=== PATIENT | female | born 1990 | race Caucasian/White ===

== ENCOUNTER 2016-12-19 09:07 | Observation (INO) | payer OTHER ==
[2016-12-18 13:52] VITALS: BMI 23.8
[2016-12-19] VITALS (28 sets, daily range): BP systolic 93–134; BP diastolic 46–65; PULSE 68–96; RESP 8–29; Ht 165.1 cm; Wt 67.0 kg
[~2016-12-19] VITALS: Ht 165.1 cm; Wt 67.0 kg
[~2016-12-19 09:07] MED LIST: PREN-39 PO
[2016-12-19] MEDS ORDERED: CEFAZOLIN 2 GM/50 ML (PMX) 50 ML IVPB ONE (09:30)
[2016-12-19] MEDS ORDERED: ACETAMINOPHEN 1000MG/100ML IV 100 ML ONE (10:51)
[2016-12-19] MEDS ORDERED: BUPIVACAINE 0.25% (MPF) 10 ML 10 ML VIAL ONE (10:52)
[2016-12-19] MEDS ORDERED: SUCCINYLCHOLINE CHLORIDE 100 MG/5 ML SYG IV ONE (10:54)
[2016-12-19] MEDS ORDERED: ROCURONIUM 50 MG INJ ONE (10:54)
[2016-12-19] MEDS ORDERED: PROPOFOL 60 ML ONE (10:54)
[2016-12-19] MEDS ORDERED: LIDOCAINE 2% (SDV) 5 ML INJ ONE (10:54)
[2016-12-19] MEDS ORDERED: MIDAZOLAM 1 MG/ML 2 ML INJ ONE (10:55)
[2016-12-19] MEDS ORDERED: FENTAnyl 50 MCG/ML VIAL ONE ×2 (10:58→11:25)
[2016-12-19] MEDS ORDERED: CEFAZOLIN 1 GM INJ ONE (11:05)
[2016-12-19] MEDS ORDERED: ONDANSETRON 4 MG INJ ONE (11:10)
[2016-12-19] MEDS ORDERED: DEXAMETHASONE 4 MG/ML 1 ML INJ ONE (11:10)
[2016-12-19] MEDS ORDERED: NEOSTIGMINE 3 MG/3 ML SYRINGE ONE (11:37)
[2016-12-19] MEDS ORDERED: GLYCOPYRROLATE 0.4 MG INJ ONE (11:37)
[2016-12-19] MEDS ORDERED: PROPOFOL 20 ML ONE (11:39)
--- NOTE | 2016-12-19 11:44 | OPR ---
Date/Time of Note Date/Time of Note DATE: 12/19/16 TIME: 11:43 Operative Report Procedure Date: December 19, 2016 Preoperative Diagnosis symptomatic gallstones Postoperative Diagnosis same Operation Performed lap salomón therapeutic injection subcutaneous marcaine Surgeon: Faby CISNEROS Anesthesia: general Specimens eduardabalFaby Gomez December 19, 2016 11:44
--- NOTE | 2016-12-19 11:57 | OPR ---
DATE OF OPERATION: 12/19/2016 INDICATION: This is a 26-year-old female with symptomatic gallstones. Risks, alternatives, benefit s, and personnel were discussed with the patient. The patient expressed her understanding and conse nts to the operation. PREOPERATIVE DIAGNOSIS: Symptomatic gallstones. POSTOPERATIVE DIAGNOSIS: Symptomatic gallstones. OPERATIONS: 1. Laparoscopic cholecystectomy. 2. Therapeutic injection of subcutaneous Marcaine, CPT code 10491. SURGEON: Stephanie Yang MD SPECIMENS: Gallbladder. COMPLICATIONS: None. ANESTHESIA: General. PROCEDURE: The patient was taken to the OR and prepped and draped in the usual sterile fashion. Pan rgical time out was performed. IV antibiotics were given. Infraumbilical incision was made transve rsely with a 15 blade. Dissection cautery was carried down to the fascia which was divided with maciel Mahan scissors. An 0 Vicryl U-stitch was placed into the fascia. Balloon Rayo trocar was intr oduced. Pneumoperitoneum was established. Midepigastric 12 mm optical trocar and right upper quadr ant and right upper flank 5 mm optical trocars are placed under direct visualization. Upon initial inspection, there were some adhesions to the gallbladder which were taken down bluntly. The cystic duct was identified. The critical view was established. The cystic duct is divided using a 35 mm E chelon vascular load stapler. Additional clips were placed in the staple line for reinforcement. T he cystic artery was divided using another fire of the 35 mm Lengby vascular load stapler. Clips w ere placed to reinforcement. The gallbladder was taken off the gallbladder bed. There was good hem ostasis. Gallbladder is retrieved using an EndoCatch bag. Ports were removed under direct visualiz ation, 0 Vicryl U-stitch was tied down. Skin was closed using skin brock. Local anesthesia was i njected. Dry dressings were applied. Dictated By: STEPHANIE RIZVI/MAYA Conf#: [id number] DID#: [id number]
[2016-12-19] MEDS ORDERED: HYDROCODONE/APAP (5/325) TAB PO ONE (12:00)
[2016-12-19] MEDS ORDERED: ALBUTEROL 0.5% (NEB) 2.5 MG/0.5 ML AMP ONE (12:14)
[2016-12-19] MEDS ORDERED: ALBUTEROL 0.083% (NEB) 2.5 MG/3 ML AMP HHN STA (12:14)
[2016-12-19] MEDS: SOD CHLORIDE 0.9% 1,000 ML IV SCH ×2 (12:20→22:50)
[2016-12-19] MEDS ORDERED: EPHEDrine SULFATE 50 MG/5 ML SYG IV PRN (12:30)
[2016-12-19] MEDS ORDERED: hydrALAzine 20 MG INJ IV PRN (12:30)
[2016-12-19] MEDS ORDERED: FENTAnyl 50 MCG/ML VIAL IV PRN ×2 (12:30)
[2016-12-19] MEDS ORDERED: LABETALOL HCL 20MG INJ IV PRN (12:30)
[2016-12-19] MEDS ORDERED: ALBUTEROL 0.083% (NEB) 2.5 MG/3 ML AMP HHN ONE (12:30)
[2016-12-19] MEDS ORDERED: DIPHENHYDRAMINE 50 MG INJ IV PRN (12:30)
[2016-12-19] MEDS ORDERED: ONDANSETRON 4 MG INJ IV PRN ×2 (12:30→15:00)
[2016-12-19] MEDS: FENTAnyl 50 MCG/ML VIAL IV PRN ×4 (12:32→15:11)
[2016-12-19] MEDS: MEPERIDINE 25 MG INJ IV PRN ×2 (13:27→15:11)
[2016-12-19] MEDS: morphine 2 MG INJ IV PRN ×2 (14:56→20:24)
[2016-12-19] MEDS ORDERED: ACETAMINOPHEN 325 MG TAB PO PRN (15:00)
[2016-12-19] MEDS: HYDROCODONE/APAP (5/325) TAB PO PRN ×2 (17:21→20:41)
--- NOTE | 2016-12-19 18:02 | HP ---
DATE OF ADMISSION: 12/19/2016 CHIEF COMPLAINT: Recurrent upper quadrant pain. HISTORY OF PRESENT ILLNESS: The patient is a 26-year-old female with a history of symptomatic galls tones, was seen by Dr. Waters as an outpatient and was brought in to the hospital today for laparosco pic cholecystectomy. The patient denied any previous history of recent cholecystitis. No recent ch est pain or shortness of breath. No history of fever or chills. No history of dysuria or hematuria . No history of leg edema. No recent hospitalization. The patient did have significant postoperat raysa pain for which she has been receiving Weldon and morphine. The patient is being admitted for fur ther evaluation and management. PAST SURGICAL HISTORY: None. ALLERGIES: NONE. SOCIAL HISTORY: No history of smoking. Occasional social alcohol use. FAMILY HISTORY: Noncontributory. MEDICATIONS PRIOR TO ADMISSION: None. PHYSICAL EXAMINATION: GENERAL: The patient is conscious, awake, alert. VITAL SIGNS: Temperature 98, pulse 72, blood pressure 105/54, O2 saturation 100% on room air. HEENT: No eye discharge or redness. Extraocular movement intact. Oropharynx clear. NECK: Supple. No mass, no thyromegaly. CHEST: Fairly clear. CARDIOVASCULAR: Normal. No murmur. ABDOMEN: The patient is status post laparoscopic cholecystectomy. EXTREMITIES: No leg edema. Pedal pulses palpable. SKIN: Without acute rash. NEUROLOGIC: The patient is awake, alert with no gross focal deficit. LABORATORY DATA: Urine test negative. Sodium 139, potassium 4.6, BUN 11, creatinine 0.7, glucose 80. Liver enzymes normal. Coagulation profile normal. WBC 6.8, hemoglobin 12.8, platelet s 286. IMPRESSION: Symptomatic gallstones, status post laparoscopic cholecystectomy. PLAN: The patient admitted on medical floor. The patient will be started on clear liquid diet, whi ch will be advanced as tolerated. The patient will be given IV fluids. For pain, the patient will be given Tylenol, Weldon and IV morphine depending on severity of the pain. We will use SCDs for DVT prophylaxis. If patient continues to do well, she will be discharged home tomorrow. Dictated By: HOLLEY CAMPBELL/MAYA Conf#: [id number] DID#: [id number]
[2016-12-20 07:57] VITALS: BP 96/54; RESP 22
[2016-12-20] MEDS: HYDROCODONE/APAP (5/325) TAB PO PRN (08:07)
--- NOTE | 2016-12-20 09:24 | PN ---
Date/Time of Note Date/Time of Note DATE: 12/20/16 TIME: 09:23 Assessment/Plan VTE Prophylaxis VTE Prophylaxis Intervention: SCD's Lines/Catheters IV Catheter Type (from Nrsg): Peripheral IV Assessment/Plan Chief Complaint/Hosp Course s/p lap salomón Problems: Assessment/Plan ok to dc today Subjective 24 Hr Interval Summary Free Text/Dictation had anxiety after surgery yesterday, now doing well Exam/Review of Systems Vital Signs Vitals Vital Signs Date Time Temp Pulse Resp B/P Pulse Ox O2 Delivery O2 Flow Rate FiO2 12/20/16 07:57 98.5 22 96/54 98 12/19/16 23:43 67 12/19/16 18:15 Room Air Intake and Output 12/19/16 12/19/16 12/20/16 15:00 23:00 07:00 Intake Total 1700 ml 870 ml 970 ml Output Total 10 ml 350 ml 400 ml Balance 1690 ml 520 ml 570 ml Exam c/d/i Medications Medications Current Medications Morphine Sulfate (morphine) 2 mg Q4H PRN IV SEVERE PAIN LEVEL 7-10 Last administered on 12/19/16 20:24; Admin Dose 2 MG; Start 12/19/16 at 15:00 Acetaminophen/ Hydrocodone Bitart ([place] (5/325)) 1 tab Q4H PRN PO PAIN Last administered on 12/20/16 08:07; Admin Dose 1 TAB; Start 12/19/16 at 15:00 Acetaminophen (Tylenol Tab) 650 mg Q4H PRN PO PAIN AND OR ELEVATED TEMP; Start 12/19/16 at 15:00 Ondansetron HCl (Zofran Inj) 4 mg Q6H PRN IV NAUSEA AND/OR VOMITING; Start 07/26 at 15:00 Faby CISNEROS December 20, 2016 09:23
--- NOTE | 2016-12-20 11:30 | DS ---
Date/Time of Note Date/Time of Note DATE: 12/20/16 TIME: 11:28 Discharge Summary Admission/Discharge Info Admit Date/Time December 19, 2016 at 13:26 Discharge Date/Time 12/20/16 Final Diagnosis 1) cholecystitis Consults surgery Procedures laparoscopic cholecystectomy Hospital Course Patient comes in with abdominal pain related to cholecystitis. Patient underwent laparoscopic cholecystectomy. She tolerated the procedure fine. Patient was deemed to be stable for discharge per surgery and so was sent home. - s/p lap salomón Home Meds Reported Medications Vits W-Ca,Fe,Fa(<1MG) ( Vitamins) 1 Tab Tablet, 1 TAB PO DAILY , TAB 02/26/16 [None] No Conflict Check 06/28/13 ALLY JENSEN December 20, 2016 11:30
== END 2016-12-20 13:01 | disposition home or self-care (01) ==
LOC: SDS 09:07 → MS1 13:26 → SDS 13:26 → MS1 14:04
PROVIDERS: ADMIT Surgery; ATTEND Surgery
DX: K80.10 Calculus of gallbladder with chronic cholecystitis without obstruction (principal)
CPT/HCPCS: 47562; 88304; 96374; 96376; J0131; J0330; J0690; J1100; J2250; J2270; J2405; J2710; J3010; J7030; Z7500; Z7512; Z7610; G0378; J7999

== ENCOUNTER 2019-01-21 20:13 | Outpatient (CLI) | payer BC ==
[~2019-01-21] VITALS: Ht 165.1 cm; Wt 81.0 kg
[2019-01-21 20:52] VITALS: Ht 165.1 cm; Wt 81.0 kg
[2019-01-21 20:53] VITALS: BP 119/56; PULSE 78; RESP 18
--- NOTE | 2019-01-21 21:56 | PN ---
Triage Information Date/Time Reason for visit: Abd/pelvic pain Weeks of Gestation 28-year-old 4 para 3 at 36 weeks and 2 days of gestation with estimated date of delivery February 17, 2019 Patient presents with chief complaint of abdominal pain and pressure Patient reports positive movement, denies vaginal bleeding and leaking fluid, denies uterine contractions /Para 4 para 3 Diabetes: none Hypertention: none Objective Vital Signs Date Temp Pulse Resp B/P (MAP) Pulse Ox O2 O2 Flow FiO2 Time Delivery Rate 01/21/19 97.5 78 18 119/56 Room Air 20:53 (77) Heart Rate: 140's Heart Rate Comments heart rate tracing category 1 Contractions: None Exam Cervix closed per nurse Results/Medications Imaging Results PROCEDURE: Biophysical profile. CLINICAL INDICATION: Pelvic pain. TECHNIQUE: Multiple sonographic images of the pelvis were obtained with transabdominal technique. COMPARISON: No prior studies are available for comparison. FINDINGS: There is a single living intrauterine gestation with the fetus in a vertex position. The placenta is anterior in location, grade 1 to 2. heart tones of 148 beats per minute are identified. There is normal amniotic fluid volume with an EFFIE of 14.6 cm. breathing movements = 2 Gross body movements = 2 tone = 2 Qualitative AFV = 2 IMPRESSION: Biophysical profile 8 out of 8. .Geovanni Abbott MD, MD Date Time Electronically viewed and signed by .Geovanni Abbott MD, on 01/21/2019 22:07 .T/ CC: SAMRA MENDEZ MD [phone] Disposition: Discharge Assessment/Plan kick count instructions were given Labor precautions were given Patient instructed to follow-up with [facility] in 1 to 2 days SAMRA MENDEZ MD Jan 21, 2019 21:56
--- NOTE | 2019-01-22 03:00 | TRIAGE ---
OB Triage Datetime Report Generated by CPN: 01/22/2019 02:59 Datetime: 01/21/2019 23:15 Stage of : OB Triage Labor Evaluation Frequency: x1 Monitor Mode: External Duration (sec)2399: 40 Quality: Mild Pattern: Normal: <= 5 Contractions in 10 Minutes Resting Tone [place]: Relaxed Heart Rate FHR Baseline Rate: 130 Monitor Mode: External US FHR Baseline Changes: No Baseline Change Variability: Moderate 6-25 bpm Accelerations: 15X15 Decelerations: None Category: Category I Datetime: 01/21/2019 23:00 Stage of : OB Triage Labor Evaluation Frequency: Occasional Monitor Mode: External Duration (sec)2399: 40-60 Quality: Mild Pattern: Normal: <= 5 Contractions in 10 Minutes Resting Tone [place]: Relaxed Heart Rate FHR Baseline Rate: 130 Monitor Mode: External US FHR Baseline Changes: No Baseline Change Variability: Moderate 6-25 bpm Accelerations: 15X15 Decelerations: None Category: Category I Datetime: 01/21/2019 22:00 Stage of : OB Triage Labor Evaluation Frequency: Occasional Monitor Mode: External Duration (sec)2399: 40-50 Quality: Mild Pattern: Normal: <= 5 Contractions in 10 Minutes Resting Tone [place]: Relaxed Heart Rate FHR Baseline Rate: 130 Monitor Mode: External US FHR Baseline Changes: No Baseline Change Variability: Moderate 6-25 bpm Accelerations: 15X15 Decelerations: None Category: Category I Datetime: 01/21/2019 21:00 Stage of : OB Triage Labor Evaluation Frequency: x1 Monitor Mode: External Duration (sec)2399: 50 Quality: Mild Pattern: Normal: <= 5 Contractions in 10 Minutes Resting Tone [place]: Relaxed Heart Rate FHR Baseline Rate: 130 Monitor Mode: External US Variability: Moderate 6-25 bpm Accelerations: 15X15 Decelerations: None Category: Category I Datetime: 01/21/2019 20:34 Vaginal Exam Dilatation (cms): 0.0 Effacement (%): 50 Station: -3 Exam By: KELSY Cortez Membrane Status: Intact Vaginal Bleeding: None Cervix, Consistency: Moderate Cervix, Position: Posterior Datetime: 01/21/2019 20:32 Assessment Type: Triage Maternal Assessment Level of Consciousness: Keenly Alert, Responsive DTR's/Clonus: DTRs 2+; No Clonus Headache: Denies Blurred Vision: No Respiratory Effort: Unlabored; Regular Rhythm; Equal Expansion Breath Sounds, Left: Clear and Equal Breath Sounds, Right: Clear and Equal Nausea/Vomiting: Denies RUQ Epigastric Pain: Denies Lower Extremities Edema: Bilateral Lower Extremities Degree: 2+ Upper Extremities Edema: None (Annotations: Tightness in hands) Degree: None Facial Edema: None Fall Risk Assessment History of Falling: (0) No Secondary Diagnosis: (0) No Ambulatory Aid: (0) Bedrest/Nurse Assist IV Therapy: (0) No Gait: (0) Normal/Bedrest/Immobile Mental Status: (0) Oriented to Own Ability Fall Score: 0 Fall Risk Score Definition: No Risk: No action required Datetime: 01/21/2019 20:30 Time of Arrival: 01/21/2019 20:01 EGA: 36.1 Arrived By: Ambulatory Arrived From: Home Chief Complaint: Lower abdominal cramping _ pressure Movement: Present Contractions: Regular Time Contractions Began: 01/21/2019 17:00 Contractions: Pt reports pain x2 days Rupture of Membranes: Denies Vaginal Bleeding: None Vaginal Discharge: Denies Abdominal Trauma: Not Applicable Patient Complaints: Contractions; Cramping; Back Pain Additional Patient Complaints: Pt is a surrogate (Annotations: Data stored by CPN on behalf of user ) Time Provider Notified: 01/21/2019 20:20 Provider Notified: Initial Plan: NST/BPP/VE Datetime: 01/21/2019 20:25 Monitor Mode: External Contraction Comments: [place] applied Heart Rate FHR Baseline Rate: 135 Monitor Mode: External US Comments: EFM applied Datetime: 01/21/2019 20:23 Stage of : OB Triage Temperature Route: Oral Pain Assessment Pain Scale: 8 Pain Presence: Intermittent Pain Type: Cramping; Pressure (Annotations: Abd cramping intermittent. Pelvic pressure constant.) Pain Location: Abdomen Pain Relief Measures: Comfort Measures Datetime: 01/21/2019 20:20 Stage of : OB Triage
== END 2019-01-21 23:23 | disposition home or self-care (01) ==
LOC: OBT 20:13 → L-D 20:15 → OBT 23:23
PROVIDERS: ATTEND Specialist
DX: O26.893 Other specified pregnancy related conditions, third trimester (principal); R10.2 Pelvic and perineal pain; Z3A.36 36 weeks gestation of pregnancy
CPT/HCPCS: 76818; G0463

== ENCOUNTER 2019-02-17 18:22 | Inpatient (IN) | payer BC ==
[~2019-02-17] VITALS: Ht 165.1 cm; Wt 82.1 kg
[2019-02-17 18:46] VITALS: Ht 165.1 cm; Wt 82.1 kg
[2019-02-17 18:47] VITALS: BP 119/68; PULSE 90; RESP 19
[2019-02-17] MEDS ORDERED: OXYTOCIN 30 UNITS/LR 500 ML IV PRN (20:00)
[2019-02-17] MEDS ORDERED: LIDOCAINE 1% (MPF) 30 ML INJ INJ PRN (20:00)
[2019-02-17] MEDS ORDERED: MISOPROSTOL 200 MCG TAB PR PRN (20:00)
[2019-02-17] MEDS ORDERED: FENTAnyl 50 MCG/ML VIAL IV PRN (20:00)
[2019-02-17] MEDS ORDERED: IBUPROFEN 600 MG TAB PO PRN (20:00)
[2019-02-17] MEDS ORDERED: METHYLERGONOVINE 0.2 MG INJ IM PRN (20:00)
[2019-02-17] MEDS ORDERED: OXYTOCIN 30 UNITS/LR 500 ML IV SCH ×3 (20:00)
[2019-02-17] MEDS ORDERED: CARBOPROST 250 MCG INJ IM PRN (20:00)
[2019-02-17] MEDS: LACTATED RINGER'S 1,000 ML IV SCH ×4 (20:35→22:41)
[2019-02-17] MEDS ORDERED: FENTAnyl 2MCG/ML-ROPIV 0.2% 100 ML ONE (21:25)
--- NOTE | 2019-02-17 21:36 | PREAC ---
Date/Time of Note Date/Time of Note DATE: 02/17/19 TIME: 21:35 Anesthesia Eval and Record Evaluation Time Pre-Procedure Interview DATE: 02/17/19 TIME: 21:35 Age 29 Sex female NPO: 8 hrs Preoperative diagnosis labor Planned procedure epiduiral Past Medical History Past Medical History: None Surgery & Anesthesia Issues No known issue Meds Anticoagulation: No Beta Remedios within 24 hr: No Reason Beta Remedios not given: Pt. not on B-Remedios Reported Medications Vits W-Ca,Fe,Fa(<1MG) ( Vitamins) 1 Tab Tablet, 1 TAB PO DAILY, TAB 02/26/16 Current Medications Lactated Ringer's 1,000 ml @ 125 mls/hr Q8H IV Last administered on 02/17/19at 21:30; Admin Dose 125 MLS/HR; Start 02/17/19 at 19:56 Fentanyl (Sublimaze) 25 mcg Q3H PRN IV .PAIN; Start 02/17/19 at 20:00 Lidocaine (Xylocaine 1% (Mpf)) 30 ml ONCE PRN INJ .EPISIOTOMY; Start 02/17/19 at 20:00 Oxytocin/Lactated Ringer's 500 ml @ 500 mls/hr ONCE POST IV ; Start 02/17/19 at 20:00 Oxytocin/Lactated Ringer's 500 ml @ 125 mls/hr POST IV ; Start 02/17/19 at 20:00 Ibuprofen (Motrin) 600 mg ONCE PRN PO .PAIN 1-5; Start 02/17/19 at 20:00 Oxytocin/Lactated Ringer's 500 ml @ 0 mls/hr ONCE PRN IV .VAGINAL BLEEDING; Start 02/17/19 at 20:00 Methylergonovine Maleate (Methergine) 0.2 mg ONCE PRN IM .VAGINAL BLEEDING; Start 02/17/19 at 20:00 Carboprost Tromethamine (Hemabate) 250 mcg ONCE PRN IM .VAGINAL BLEEDING; Start 02/17/19 at 20:00 Misoprostol (Cytotec) 1,000 mcg ONCE PRN NC .VAGINAL BLEEDING; Start 02/17/19 at 20:00 Oxytocin/Lactated Ringer's 500 ml @ 0 mls/hr FOR AUGMENTATION IV ; Start 02/17/19 at 20:00 Meds reviewed: Yes Allergies Coded Allergies: morphine (Verified Allergy, Severe, Throat closes, 01/21/19) Allergies Reviewed: Yes Labs/Studies Labs Reviewed: Reviewed by anesthesiologist Result Diagram: 02/17/192019 Laboratory Tests 02/17/19 20:20 test: N/A Pre-procedure Exam Last vitals Vital Signs Date Temp Pulse Resp B/P (MAP) Pulse Ox O2 O2 Flow FiO2 Time Delivery Rate 02/17/19 97.6 90 19 119/68 Room Air 18:47 (85) Airway: Adequate mouth opening, Adequate thyromental dist Mallampati: Mallampati II Teeth: Normal Lung: Normal Heart: Normal ASA Physical Status ASA physical status: 2 Emergency: None Pre-operative Attestations Prior to commencing anesthesia and surgery, the patient was re-evaluated, there was verification of: *The patient's identity *The results of appropriate recent lab work and preoperative vital signs *The above evaluation not changing prior to induction *Anesthetic plan, risk benefits, alternative and complications discussed with patient/family; questions answered; patient/family understands, accepts and wishes to proceed. LARRY STERLING DO Feb 17, 2019 21:36
--- NOTE | 2019-02-17 21:37 | PAC ---
Date/Time of Note Date/Time of Note DATE: 02/17/19 TIME: 21:37 Post-Anesthesia Notes Post-Anesthesia Note Last documented vital signs Vital Signs Date Temp Pulse Resp B/P (MAP) Pulse Ox O2 O2 Flow FiO2 Time Delivery Rate 02/17/19 98 85 19 109/68 Room Air 2145 Activity: WNL Respiratory function: WNL Cardiovascular function: WNL Mental status: Baseline Pain reasonably controlled: Yes Hydration appropriate: Yes Nausea/Vomiting absent: Yes LARRY STERLING DO Feb 17, 2019 21:37
[2019-02-17] MEDS ORDERED: NALOXONE (0.4 MG/ML) INJ IV PRN (22:00)
[2019-02-17] MEDS ORDERED: FENTAnyl 2MCG/ML-ROPIV 0.2% 100 ML BAG EPI SCH (22:00)
[2019-02-18] MEDS: CITRIC ACID/NA CITRATE 30 ML CUP PO SCH ×3 (02:00→18:00)
[2019-02-18] MEDS: LACTATED RINGER'S 1,000 ML IV SCH (06:20)
[2019-02-18] MEDS ORDERED: MINERAL OIL LIGHT 10 ML VIAL TOP ONE ×2 (09:30)
--- NOTE | 2019-02-18 09:45 | HP ---
Date/Time of Note Date/Time of Note DATE: 02/18/19 TIME: 09:44 OB - History Hx of Present Free Text/Dictation 29 YO with EDC 02/17/2019 with IUP at 40.1 weeks who reported in early labor Care: Good Care Ultrasounds: Normal mid trimester US Obstetrical Complications: None Medical Complications: None Past Family/Social History * Past Medical, Surgical, Family and Obstetric Histories reviewed from chart. OB Admission Exam Vital Signs Vital Signs Vital Signs Date Temp Pulse Resp B/P (MAP) Pulse Ox O2 O2 Flow FiO2 Time Delivery Rate 02/17/19 97.6 90 19 119/68 Room Air 18:47 (85) Physical Exam HEENT: WNL Heart: Rhythm Normal Lungs: Clear, Equal Abdomen: WNL Extremities: Normal Reflexes: Normal Cervical Dilatation: 10cm Last 72 hours Lab Results CBC & BMP 02/17/19 20:20 OB Assessment/Plan Reason for admission: active labor Plan: Expectant Management JIAN VALENZUELA MD Feb 18, 2019 09:45
--- NOTE | 2019-02-18 09:46 | LDN ---
Date/Time of Note Date/Time of Note DATE: 02/18/19 TIME: 09:45 Delivery Summary 29 YO with EDC 02/17/2019 with IUP at 40.1 weeks s/p of viable male . After delivery of the head the rest of the body delivered easily. I did not apply excessive traction. Placenta delivered spontaneously and intact. evaluation of the placenta confirmed intact placenta. Uterus was firm with cervix closed on exam Placenta Delivered: Spontaneously Meconium: Light Episiotomy: No Perineal laceration: 0 Anesthesia type: Epidural Sponge & Needle done & correct: Yes All needle counts correct: Yes Any foreign bodies felt in the: No Infant Delivery Information Sex Infant Sex: male Apgars 1 Minute: 9 5 Minute: 9 Suctioning Nose & mouth suctioned at xuan: No Delee suction performed: No Umbilical Cord Umbilical cord with: 3 Vessels Nuchal cord present X: 300 Cord Blood was obtained: Yes Mother & Baby Disposition Disposition Mom & Baby to Maternity; Good: Yes JIAN VALENZUELA MD Feb 18, 2019 09:46
[2019-02-18] MEDS ORDERED: OXYTOCIN 30 UNITS/LR 500 ML IV PRN (10:00)
[2019-02-18] MEDS ORDERED: CARBOPROST 250 MCG INJ IM PRN (10:00)
[2019-02-18] MEDS ORDERED: WITCH HAZEL/GLYCERIN PAD PR PRN (10:00)
[2019-02-18] MEDS ORDERED: ONDANSETRON 4 MG TAB PO PRN (10:00)
[2019-02-18] MEDS ORDERED: ONDANSETRON 4 MG INJ IV PRN (10:00)
[2019-02-18] MEDS ORDERED: DIPHENHYDRAMINE 50 MG INJ IV PRN (10:00)
[2019-02-18] MEDS ORDERED: LANOLIN HPA 1 PKT TOP PRN (10:00)
[2019-02-18] MEDS ORDERED: BENZOCAINE 20% 56 ML SPRAY TOP PRN (10:00)
[2019-02-18] MEDS ORDERED: MISOPROSTOL 200 MCG TAB PR PRN (10:00)
[2019-02-18] MEDS ORDERED: DIBUCAINE 1% 30 GM OINT TOP PRN (10:00)
[2019-02-18] MEDS ORDERED: NA PHOSPHATE/BIPHOS 133 ML ENEMA PR PRN (10:00)
[2019-02-18] MEDS ORDERED: MAGNESIUM HYDROXIDE 30ML CUP PO PRN (10:00)
[2019-02-18] MEDS ORDERED: SENNA/DOCUSATE NA (8.6MG/50MG) TAB PO PRN (10:00)
[2019-02-18] MEDS ORDERED: DIPHENHYDRAMINE 25 MG CAP PO PRN (10:00)
[2019-02-18] MEDS: IBUPROFEN 600 MG TAB PO SCH ×2 (12:31→17:48)
[2019-02-18] MEDS ORDERED: HYDROCODONE/APAP (5/325) TAB PO PRN ×2 (13:30)
[2019-02-18 15:35] VITALS: BP 129/76; PULSE 68; RESP 16
[2019-02-18] MEDS: LACTATED RINGER'S 1,000 ML IV* SCH ×2 (15:39→17:49)
[2019-02-18 19:58] VITALS: BP 127/58; PULSE 77; RESP 20
[2019-02-18] MEDS: SENNA/DOCUSATE NA (8.6MG/50MG) TAB PO SCH (20:35)
[2019-02-19] MEDS: IBUPROFEN 600 MG TAB PO SCH ×4 (00:01→18:00)
[2019-02-19] MEDS: LACTATED RINGER'S 1,000 ML IV* SCH ×2 (02:00→20:37)
[2019-02-19] MEDS: CITRIC ACID/NA CITRATE 30 ML CUP PO SCH ×2 (02:00→20:37)
[2019-02-19 04:41] VITALS: BP 110/62; PULSE 64; RESP 20
[2019-02-19 08:00] VITALS: BP 117/64; PULSE 71; RESP 20
[2019-02-19] MEDS: SENNA/DOCUSATE NA (8.6MG/50MG) TAB PO SCH ×2 (11:39→21:00)
--- NOTE | 2019-02-19 12:18 | PD.PPDC ---
MEDICAL EDUCATION MANAGER Discharge Instruction Condition [id number] Patient Condition: [id number] Good Diet [id number] Diet: [id number] Resume Regular Diet Activity/Restrictions Glhyf6Co Activity: [id number] Normal Activity May Shower [id number] Restrictions: [id number] Nothing in the Vagina No [place] No Tampons, douche Follow-up Follow-up with Physician: 6, Week/Weeks Return to clinic for [id number] SHADE HANGER Instructions: [id number] Fever greater than 101 Chills Worsening abdominal pain Excessive Vaginal Bleeding [id number] OB Instructions: Kvkqk2l Breast Tenderness Depression SAEED ENCARNACION MD Feb 19, 2019 12:18
--- NOTE | 2019-02-19 12:20 | DS ---
Date/Time of Note Date/Time of Note DATE: 02/19/19 TIME: 12:19 Obstetrical Discharge Record Final Diagnosis Final Diagnosis: Term delivered Vaginal Delivery Obstetrical Delivery: Spontaneous Condition on Discharge Physical Assessment Last Vitals: T=98.1 BP 117/64 Voiding: Yes Bowel Movement: Yes Breast: Soft, non-tender Fundus: Firm Calf Tenderness: No Patient Condition: Good SAEED ENCARNACION MD Feb 19, 2019 12:20
[2019-02-19 16:00] VITALS: BP 121/68; PULSE 65; RESP 18
[2019-02-19] MEDS ORDERED: ACET/BUTAL/CAFF TAB PO ONE ×3 (17:30→19:30)
[2019-02-19] MEDS ORDERED: SUMATRIPTAN 25 MG TAB PO ONE ×3 (17:30→19:30)
[2019-02-19] MEDS ORDERED: IBUPROFEN 800 MG TAB PO ONE (19:30)
[2019-02-19 19:45] VITALS: BP 128/69; PULSE 66; RESP 19
--- NOTE | 2019-02-19 21:10 | OPPN ---
Date/Time of Note Date/Time of Note DATE: 02/19/19 TIME: 08:00 Event Note Intermediate level inpatient evaluation and epidural blood patch placement for postdural puncture headache pt. is postdelivery day [facility] with epidural pain relief. epidural placement was difficult and pt. complains of a postural headache relieved with recumbency. Cranial nerves are intact andpatient doesn't complain of diplopia. risks and benefits of epidural blood patch are explained and patient wishes to proceed. Consent. Area is prepped and drapped and using a 17 g tuohy needle epidural space is accessed and then in a sterile manner 20 cc of peripheral blood are drawn and given to the epidural space yael gentle manner until a fullness sensation is reported by the patient. Then pt. to recumbent position and lying for an hour. Patient the ambulating and feels a mild reduction in headache. Natural course of postdural puncture headache explained to patient and meds incl. imitrex 25 mg q6h x 10 d and fioricet i-ii tabs q6h x 10 d are ordered for home. No complications. GOKUL PANDYA MD Feb 19, 2019 21:10
[2019-02-20] MEDS ORDERED: MEASLES,MUMPS,RUBELLA VACCINE INJ SC* ONE (09:00)
[2019-02-20] MEDS ORDERED: DIPHTH/TET/ACEL PERTUSS (ADULT) 0.5 ML VIAL IM* ONE (09:00)
[2019-02-20] MEDS ORDERED: VARICELLA VACCINE LIVE/PF 1,350 UNIT/0.5 ML ML SC* ONE (09:00)
--- NOTE | 2019-02-20 22:10 | DELSUM ---
Delivery Summary A-C Datetime Report Generated by CPN: 02/20/2019 22:09 DELIVERY PERSONNEL Technical Sales Manager: Sebunnya, Phoebe MATERNAL INFORMATION Delivery Anesthesia: Epidural Medications in Delivery: pitocin 30 units lr 500ml Delivery QBL (ml): 300 Placenta Cultured: No Maternal Complications: None RN Comments: L RHYS RN LABOR SUMMARY EDC: 02/17/2019 00:00 No. Babies in Womb: 1 Attempted: No Labor Anesthesia: Epidural LABOR INFORMATION Onset of Labor: 02/18/2019 19:00 Complete Dilatation: 02/18/2019 09:22 Group B Beta Strep: Negative Antibiotics # of Doses: 0 Steroids Given: None Reason Steroids Not Administered: Not Applicable MEMBRANES Membranes Rupture Method: Spontaneous Rupture of Membranes: 02/18/2019 08:39 Length of Rupture (hr): 0.78 Amniotic Fluid Color: Light Meconium Amniotic Fluid Amount: Small Amniotic Fluid Odor: Normal STAGES OF LABOR Stage 1 hr: -9 Stage 1 min: -38 Stage 2 hr: 0 Stage 2 min: 4 Stage 3 hr: 0 Stage 3 min: 7 Total Time in Labor hr: -9 Total Time in Labor min: -27 BABY A INFORMATION Delivery Date/Time: 02/18/2019 09:26 Method of Delivery: Vaginal Born in Route : No : N/A Forceps: N/A Vacuum Extraction: N/A Shoulder Dystocia : N/A SHOULDER DYSTOCIA BABY A Delivery Date/Time: 02/18/2019 09:26 PRESENTATION/POSITION BABY A Presentation: Cephalic Cephalic Presentation: Vertex Vertex Position: Left Occipital Anterior Breech Presentation: N/A PLACENTA INFORMATION BABY A Placenta Delivery Time : 02/18/2019 09:33 Placenta Method of Delivery: Spontaneous Placenta Status: Delivered SCORES BABY A Heart Rate 1 min: >100 bpm Resp Effort 1 min: Good Cry Reflex Irritability 1 min: Cough/Sneeze/Pulls Away Muscle Tone 1 min: Active Motion Color 1 min: Body [place], Extremit Blue Resuscitation Effort 1 min: Tactile Stimulation SCORE 1 MIN: 9 Heart Rate 5 min: >100 bpm Resp Effort 5 min: Good Cry Reflex Irritability 5 min: Cough/Sneeze/Pulls Away Muscle Tone 5 min: Active Motion Color 5 min: Body [place], Extremit Blue SCORE 5 MIN: 9 INFANT INFORMATION BABY A Gestational Age at Delivery: 40.1 Gestational Status: Full Term- 39- 40.6 Weeks Outcome : Liveborn, with signs of life Condition : Stable Sex: Male IDENTIFICATION/MEDS BABY A ID Band Number: [id number] ID Band Location: Right Arm; Left Arm Sensor Applied: Yes Sensor Number: [id number] Sensor Location : Cord Clamp Vitamin K Given : Not Given Erythromycin Given: Not Given WEIGHT/LENGTH BABY A Infant Birthweight (gm): 3505 Infant Weight (lb): 7 Infant Weight (oz): 12 Length (in): 21.00 Length (cm): 53.34 CORD INFORMATION BABY A No. Cord Vessels: 3 Nuchal Cord : N/A Nuchal Cord- Other: 0 True Knot: 0 Cord Blood Taken: Yes Banking/Donate Info: YES Suction: Mouth; Nose ASSESSMENT BABY A Complications: Multiple Variable Decels Physical Findings at Delivery: Within Normal Limits Respirations: Appears Normal Diesel Powerplant Supervisor/ALS Called : No Infant Care By: RODRIGUEZ TIERNEY Transferred To: Remains with Mother
== END 2019-02-19 22:05 | disposition home or self-care (01) | DRG 807 ==
LOC: L-D 18:22 → OBT 18:22 → L-D 18:28 → OBT 19:52 → L-D 20:00 → PP1 02-18 11:27
PROVIDERS: ADMIT Obstetrics & Gynecology; ATTEND Specialist
PROC: 10E0XZZ Delivery of Products of Conception, External Approach (ICD-10-PCS; principal; 2019-02-18)
PROC: 3E0R3GC Introduction of Other Therapeutic Substance into Spinal Canal, Percutaneous Approach (ICD-10-PCS; 2019-02-19)
DX: O48.0 Post-term pregnancy (principal); Z37.0 Single live birth; Z3A.40 40 weeks gestation of pregnancy; G97.1 Other reaction to spinal and lumbar puncture
CPT/HCPCS: 62322; 82962; 85025; 85610; 85730; 86592; 86850; 86900; 86901; 87340; 99464; G0463; J2590; J3010; J7120